=== PATIENT | female | born 1980 | race Hispanic/Latino ===

== ENCOUNTER 2017-05-24 12:45 | Emergency (ER) | payer SELFPAY | END 2017-05-24 15:00 | disposition home or self-care (01) | LOC: BURERS 12:45 | DX: H66.93 Otitis media, unspecified, bilateral (principal) | CPT/HCPCS: 99282 ==

== ENCOUNTER 2019-08-11 11:13 | Emergency (ER) | payer SELFPAY ==
[2019-08-11] MEDS ORDERED: predniSONE 20 MG TAB ONE (11:44)
--- NOTE | 2019-08-11 17:37 | RAD ---
CHEST TWO VIEWS: 08/11/19 Comparison is made with an 07/24/11 study. The heart is slightly larger than before but is still within limits of normal in size. No lobar infil trate or effusion was seen. The lung markings seem a little more prominent than they were previously. On the lateral view, there is a little increased density in the chest anteriorly but I cannot confir m an infiltrate on the PA film. There are no effusions. The trachea is midline. IMPRESSION: Slight prominence of the lung markings compared to prior studies. This can be seen in cases of bronch itis and sometimes viral or mycoplasmal illnesses. Occasionally, it can be normal for the patient. POS: HOME
== END 2019-08-11 12:15 | disposition home or self-care (01) ==
LOC: BURERS 11:13
DX: J45.901 Unspecified asthma with (acute) exacerbation (principal); J18.9 Pneumonia, unspecified organism
CPT/HCPCS: 71046; J7512; J7620